=== PATIENT | female | born 1995 | race Caucasian/White ===

== ENCOUNTER 2024-03-21 02:15 | Emergency (ER) | payer MEDICAID ==
[~2024-03-21] VITALS: Ht 149.9 cm; Wt 54.5 kg
[2024-03-21 02:50] LABS: COVID AG,FIA SOURCE NASAL SWAB
[2024-03-21 03:14] LABS: SARS-COV2 (COVID) ANTIGEN,FIA Negative (Negative)
[2024-03-21 03:15] LABS: INFLUENZA TYPE A NEGATIVE FOR TYPE A (NEGATIVE); INFLUENZA TYPE B NEGATIVE FOR TYPE B (NEGATIVE)
[2024-03-21] MEDS ORDERED: ONDA-104 PO (04:23)
[2024-03-21] MEDS: ONDANSETRON 4 MG TABLET PO ONE (04:38)
[2024-03-21] MEDS: IBUPROFEN 400 MG TABLET PO ONE (04:38)
[2024-03-21] MEDS: ACETAMINOPHEN 325 MG TABLET PO ONE (04:38)
[2024-03-21] MEDS: DEXAMETHASONE 4 MG TABLET PO ONE (04:39)
[2024-03-21 05:49] VITALS: BP 119/67; PULSE 89; RESP 18; TEMP 97.3; O2SAT 98
== END 2024-03-21 06:21 | disposition home or self-care (01) ==
LOC: EMS 02:40
DX: J06.9 Acute upper respiratory infection, unspecified (principal); B97.89 Other viral agents as the cause of diseases classified elsewhere; J45.909 Unspecified asthma, uncomplicated; Z98.890 Other specified postprocedural states; Z20.822 Contact with and (suspected) exposure to COVID-19
CPT/HCPCS: 99284; 87426; 87804; J8540; Q0162

== ENCOUNTER 2024-10-17 12:02 | Emergency (ER) | payer SELFPAY ==
[~2024-10-17] VITALS: Ht 149.9 cm; Wt 58.2 kg
[~2024-10-17 12:02] MED LIST: ONDA-104 PO
[2024-10-17 12:06] VITALS: TEMP 98.5
[2024-10-17 12:26] LABS: APPEARANCE,URINE HAZY (CLEAR); GLUCOSE, URINE (UA) NEGATIVE (NEGATIVE); LEUKOCYTE ESTERASE ,URINE LARGE (NEGATIVE); NITRATE,URINE NEGATIVE (NEGATIVE); OCCULT BLOOD,URINE MODERATE (NEGATIVE); SPECIFIC GRAVITIY, URINE 1.022 (1.003-1.030)
[2024-10-17 12:36] LABS: SQUAMOUS EPITHELIAL CELL,UR Moderate /LPF (None Seen)
[2024-10-17 12:43] LABS: HCG,QUAL URINE NEGATIVE (NEGATIVE)
[2024-10-17] MEDS: IBUPROFEN 600 MG TABLET PO ONE (14:21)
[2024-10-17 14:45] VITALS: BP 115/72; PULSE 70; RESP 16; O2SAT 98
[2024-10-17] MEDS ORDERED: CEPH-558 PO (15:03)
== END 2024-10-17 15:23 | disposition home or self-care (01) ==
LOC: EMS 12:04
DX: N39.0 Urinary tract infection, site not specified (principal); R10.2 Pelvic and perineal pain; J45.909 Unspecified asthma, uncomplicated; L29.9 Pruritus, unspecified; N89.8 Other specified noninflammatory disorders of vagina; Z87.59 Personal history of other complications of pregnancy, childbirth and the puerperium; Z91.013 Allergy to seafood; Z98.890 Other specified postprocedural states
CPT/HCPCS: 76856; 81001; 84703; 87086; 87210; 87491; 87591; 99284; Z7502; Z7610